=== PATIENT | female | born 1945 | race Caucasian/White ===

== ENCOUNTER 2021-02-22 15:30 | Inpatient (IN) ==
[2021-02-22] MEDS ORDERED: Heparin - STEMI 5,000 UNITS/ML 1 ml VIAL IV ONE (15:38)
[2021-02-22] MEDS ORDERED: fentaNYL 100 mcg/2 ml 50 MCG/ML VIAL ONE (15:41)
[2021-02-22] MEDS ORDERED: Midazolam 5 mg/5 ml VIAL 1 mg/ml 5 ml VIAL (5 mg) ONE (15:41)
[2021-02-22 15:44] LABS: ABS Basophils 0.1 10^3/ul (0-0.2); ABS Eosinophils 0.1 10^3/ul (0-0.6); ABS Lymphocytes 2.2 10^3/ul (1.0-4.8); ABS Monocytes 0.9 10^3/ul (0-0.8); ABS Neutrophils 6.8 10^3/ul (1.5-7.7); Eosinophil % 0.9 %; Hematocrit 42 % (35-47); Hemoglobin 13.6 g/dL (12.0-16.0); Lymphocyte % 21.8 %; Mean Corpuscular HGB Conc 33 g/dL (31-36); Mean Corpuscular Hemoglobin 31 pg (27-31); Mean Corpuscular Volume 94 fL (80-97); Mean Platelet Volume 9.1 fL (7.4-10.4); Platelet Count 248 10^3/uL (150-450); Red Blood Count 4.44 10^6 /uL (3.70-4.87); Red Cell Distribution Width 15 % (10-15); White Blood Count 10.1 10^3/uL (3.5-10.8)
[2021-02-22 16:01] LABS: Activated Partial Thrombo Time 25.9 seconds (26.0-38.0); INR 1.03 (0.82-1.09)
[2021-02-22 16:04] LABS: ALT 39 U/L (7-52); AST 40 U/L (13-39); Albumin/Globulin Ratio 1.3 (1-3); Alkaline Phosphatase 51 U/L (34-104); Anion Gap 10 mmol/L (2-11); Blood Urea Nitrogen 27 mg/dL (6-24); CO2 Carbon Dioxide 22 mmol/L (22-32); Calcium 9.2 mg/dL (8.6-10.3); Chloride 101 mmol/L (101-111); Creatine Kinase 182 U/L (10-223); EGFR African American 47.8 (>60); EGFR Non-African American 39.5 (>60); Globulin 3.1 g/dL (2-4); Glucose 403 mg/dL (70-100); LDL Cholesterol Direct 145 mg/dL; Sodium 133 mmol/L (135-145); Total Protein 7.1 g/dL (6.4-8.9)
[2021-02-22 16:06] LABS: Myoglobin 67.4 ng/mL (14.3-65.8)
[2021-02-22 16:07] LABS: CKMB ng/mL 25.6 ng/mL (0.6-6.3)
[2021-02-22] MEDS ORDERED: Bivalirudin 250 MG VIAL ONE ×2 (16:07→16:58)
[2021-02-22 16:13] LABS: Troponin I 1.98 ng/mL (<0.03)
[2021-02-22 16:34] LABS: Magnesium 1.9 mg/dL (1.9-2.7)
[2021-02-22] MEDS ORDERED: Iohexol 350 (CONTRAST) 200 ML MDV IV ONE (16:48)
[2021-02-22] MEDS ORDERED: Metoprolol Tartrate 5 mg VIAL 5 ml VIAL (1 mg/ml) ONE (18:04)
[2021-02-22] MEDS ORDERED: Ondansetron 4 mg VIAL 2 MG/ML 2 ml VIAL ONE (18:07)
[2021-02-22] MEDS ORDERED: Atropine 0.1 MG/ML 10 ml SYR (1 mg) IV PUSH PRN (18:23)
[2021-02-22] MEDS ORDERED: Ondansetron 4 mg VIAL 2 MG/ML 2 ml VIAL IV PRN (18:23)
[2021-02-22] MEDS ORDERED: NS 0.9% 1000 ml BAG 1,000 ML IV SCH (18:30)
[2021-02-22] MEDS ORDERED: Al Hydrox/Mg Hydrox/Simet LIQ 30 ML UDC PO ONE (18:52)
[2021-02-22] MEDS ORDERED: Bivalirudin 250 MG in NS 0.9% 50 ML 50 ML IV SCH (19:00)
[2021-02-22 20:17] LABS: Troponin I 32.43 ng/mL (<0.03)
[2021-02-23 02:06] LABS: Troponin I 28.51 ng/mL (<0.03)
[2021-02-23 05:15] LABS: ABS Eosinophils 0.1 10^3/ul (0-0.6); ABS Lymphocytes 2.4 10^3/ul (1.0-4.8); ABS Monocytes 1.2 10^3/ul (0-0.8); ABS Neutrophils 7.7 10^3/ul (1.5-7.7); Eosinophil % 0.6 %; Hematocrit 36 % (35-47); Hemoglobin 11.7 g/dL (12.0-16.0); Lymphocyte % 21.2 %; Mean Corpuscular HGB Conc 33 g/dL (31-36); Mean Corpuscular Hemoglobin 31 pg (27-31); Mean Corpuscular Volume 93 fL (80-97); Mean Platelet Volume 9.1 fL (7.4-10.4); Platelet Count 225 10^3/uL (150-450); Red Blood Count 3.83 10^6 /uL (3.70-4.87); Red Cell Distribution Width 15 % (10-15); White Blood Count 11.5 10^3/uL (3.5-10.8)
[2021-02-23 05:31] LABS: Anion Gap 8 mmol/L (2-11); Blood Urea Nitrogen 23 mg/dL (6-24); CO2 Carbon Dioxide 24 mmol/L (22-32); Chloride 103 mmol/L (101-111); Cholesterol 213 mg/dL; EGFR African American 53.9 (>60); EGFR Non-African American 44.5 (>60); Glucose 171 mg/dL (70-100); HDL Cholesterol 64.1 mg/dL; LDL Cholesterol 117 mg/dL; Potassium 4.4 mmol/L (3.5-5.0); Sodium 135 mmol/L (135-145); Triglycerides 162 mg/dL
[2021-02-23 06:28] LABS: Magnesium 1.9 mg/dL (1.9-2.7)
[2021-02-23] MEDS ORDERED: Magnesium Sulfate IV 1GM/100ML 1 GM/100 ML BAG IV ONE (06:47)
[2021-02-23] MEDS ORDERED: Perflutren Lipid Microsphere 3 ML VIAL ONE (08:19)
[2021-02-23 10:26] LABS: Phosphorus 4.2 mg/dL (2.5-5.0)
[2021-02-23 11:24] LABS: Troponin I 26.71 ng/mL (<0.03)
[2021-02-23] MEDS ORDERED: Gadobenate (CONTRAST) 529 MG/ML 10 ML SDV IV ONE (13:07)
[2021-02-23] MEDS: Fluticasone NASAL SPRAY 50MCG 16 gm SPRAY BTL BOTH NARES SCH (15:22)
[2021-02-24] MEDS ORDERED: Dextrose 50% Syringe 50 ml 25 GM/50 ML SYRINGE IV PUSH PRN (09:08)
[2021-02-24] MEDS: Fluticasone NASAL SPRAY 50MCG 16 gm SPRAY BTL BOTH NARES SCH (09:24)
[2021-02-25] MEDS: Fluticasone NASAL SPRAY 50MCG 16 gm SPRAY BTL BOTH NARES SCH (08:59)
[2021-02-25 09:17] VITALS: BP 150/75
== END 2021-02-25 11:28 | disposition home or self-care (01) | DRG 246 ==
LOC: ED 15:30 → CHICATH 15:39 → ICU 18:20 → MEDTELE 02-23 17:59
PROVIDERS: ATTEND Hospitalist

== ENCOUNTER 2022-08-14 16:17 | Inpatient (IN) ==
[2022-08-14 16:59] LABS: ABS Basophils 0.1 10^3/ul (0-0.2); ABS Eosinophils 0.1 10^3/ul (0-0.6); ABS Monocytes 0.8 10^3/ul (0-0.8); ABS Neutrophils 7.7 10^3/ul (1.5-7.7); Eosinophil % 1.1 %; Hematocrit 37 % (35-47); Hemoglobin 11.9 g/dL (12.0-16.0); Lymphocyte % 18.3 %; Mean Corpuscular HGB Conc 32 g/dL (31-36); Mean Corpuscular Hemoglobin 28 pg (27-31); Mean Corpuscular Volume 86 fL (80-97); Mean Platelet Volume 8.9 fL (7.4-10.4); Platelet Count 234 10^3/uL (150-450); Red Blood Count 4.29 10^6 /uL (3.70-4.87); Red Cell Distribution Width 16 % (10-15); White Blood Count 10.7 10^3/uL (3.5-10.8)
[2022-08-14 17:05] LABS: INR 0.91 (0.89-1.11)
[2022-08-14 17:57] LABS: Albumin 3.7 g/dL (3.2-5.2); Albumin/Globulin Ratio 1.3 (1-3); Calcium 9.1 mg/dL (8.6-10.3); Globulin 2.9 g/dL (2-4); Magnesium 1.6 mg/dL (1.9-2.7); Potassium 4.8 mmol/L (3.5-5.0); Total Bilirubin 0.4 mg/dL (0.2-1.0); Total Protein 6.6 g/dL (6.4-8.9)
[2022-08-14 18:00] LABS: CKMB ng/mL 2.7 ng/mL (0.6-6.3)
[2022-08-14 18:39] LABS: High Sensitivity Troponin 1 Hr 232 pg/mL (<15)
[2022-08-14] MEDS ORDERED: Heparin DRIP 25,000 UNITS BAG 25,000 UNITS/500 ML BAG IV SCH (19:15)
[2022-08-14] MEDS ORDERED: Heparin - STEMI 5,000 UNITS/ML 1 ml VIAL IV ONE (19:26)
[2022-08-14] MEDS ORDERED: Dextrose 50% Syringe 50 ml 25 GM/50 ML SYRINGE IV PUSH PRN (20:50)
[2022-08-14 20:54] LABS: Activated Partial Thrombo Time 23.7 seconds (26.0-38.0)
[2022-08-14] MEDS ORDERED: Magnesium Sulfate 2 gm BAG 2 GM/50 ML BAG IVPB ONE (21:00)
[2022-08-14] MEDS ORDERED: Heparin 5000 UNITS/ML 1 mL VIAL IV SCH (21:00)
[2022-08-14] MEDS: Insulin GLARGINE 100 un/ml 10 ml VIAL SUBCUT SCH (22:16)
[2022-08-15 08:00] LABS: ABS Eosinophils 0.3 10^3/ul (0-0.6); ABS Monocytes 0.9 10^3/ul (0-0.8); ABS Neutrophils 3.4 10^3/ul (1.5-7.7); Eosinophil % 3.6 %; Hematocrit 36 % (35-47); Hemoglobin 11.6 g/dL (12.0-16.0); Mean Corpuscular HGB Conc 32 g/dL (31-36); Mean Corpuscular Hemoglobin 28 pg (27-31); Mean Corpuscular Volume 87 fL (80-97); Mean Platelet Volume 8.7 fL (7.4-10.4); Nucleated Red Blood Cells % 0.1; Platelet Count 224 10^3/uL (150-450); Red Cell Distribution Width 16 % (10-15); White Blood Count 8.7 10^3/uL (3.5-10.8)
[2022-08-15] MEDS ORDERED: Perflutren Lipid Microsphere 3 ML VIAL ONE (08:20)
[2022-08-15] MEDS ORDERED: Influenza vaccine *QUAD* *2022-23* 0.5 ML SYRINGE IM ONE (09:00)
[2022-08-15 10:01] LABS: Calcium 8.9 mg/dL (8.6-10.3); Potassium 4.4 mmol/L (3.5-5.0); eGFR CKD-EPI 44.8 (>60)
[2022-08-15 11:06] LABS: HDL Cholesterol 66.8 mg/dL
[2022-08-15 17:54] LABS: ABS Basophils 0.1 10^3/ul (0-0.2); ABS Eosinophils 0.2 10^3/ul (0-0.6); ABS Lymphocytes 2.9 10^3/ul (1.0-4.8); ABS Monocytes 0.8 10^3/ul (0-0.8); ABS Neutrophils 4.1 10^3/ul (1.5-7.7); Eosinophil % 2.5 %; Hematocrit 39 % (35-47); Hemoglobin 12.2 g/dL (12.0-16.0); Lymphocyte % 35.5 %; Mean Corpuscular HGB Conc 32 g/dL (31-36); Mean Corpuscular Hemoglobin 28 pg (27-31); Mean Corpuscular Volume 87 fL (80-97); Mean Platelet Volume 8.9 fL (7.4-10.4); Platelet Count 245 10^3/uL (150-450); Red Cell Distribution Width 16 % (10-15); White Blood Count 8.1 10^3/uL (3.5-10.8)
[2022-08-15 18:10] LABS: eGFR CKD-EPI 37.5 (>60)
[2022-08-15 18:27] LABS: Activated Partial Thrombo Time 23.5 seconds (26.0-38.0); INR 0.84 (0.89-1.11)
[2022-08-15 20:45] LABS: Glucose Confirmatory 468 mg/dL (70-100)
[2022-08-15] MEDS: Heparin 5000 UNITS/ML 1 mL VIAL SUBCUT SCH (21:38)
[2022-08-15] MEDS: Insulin GLARGINE 100 un/ml 10 ml VIAL SUBCUT SCH (21:38)
[2022-08-16 06:37] LABS: ABS Eosinophils 0.3 10^3/ul (0-0.6); ABS Neutrophils 3.8 10^3/ul (1.5-7.7); Eosinophil % 3.6 %; Hematocrit 36 % (35-47); Hemoglobin 11.4 g/dL (12.0-16.0); Lymphocyte % 43.9 %; Mean Corpuscular HGB Conc 32 g/dL (31-36); Mean Corpuscular Hemoglobin 27 pg (27-31); Mean Corpuscular Volume 87 fL (80-97); Mean Platelet Volume 8.6 fL (7.4-10.4); Platelet Count 221 10^3/uL (150-450); Red Blood Count 4.15 10^6 /uL (3.70-4.87); Red Cell Distribution Width 16 % (10-15)
[2022-08-16 07:11] LABS: Potassium 4.3 mmol/L (3.5-5.0); eGFR CKD-EPI 51.2 (>60)
[2022-08-16] MEDS ORDERED: Dextrose 50% Syringe 50 ml 25 GM/50 ML SYRINGE IV PUSH PRN (07:16)
[2022-08-16] MEDS: Heparin 5000 UNITS/ML 1 mL VIAL SUBCUT SCH (11:35)
[2022-08-16 11:53] VITALS: BP 152/57
[2022-08-16] MEDS ORDERED: Regadenoson 0.4 MG/5 ML SYRINGE ONE (13:44)
== END 2022-08-16 15:40 | disposition home or self-care (01) | DRG 282 ==
LOC: ED 16:17 → EDHOLD 19:22 → SUATTDRO 19:22 → MEDTELE 22:57
PROVIDERS: ADMIT Student in an Organized Health Care Education/Training Program; ATTEND Internal Medicine